=== PATIENT | male | born 1975 | race Caucasian/White ===

== ENCOUNTER 2017-03-26 17:20 | Emergency (ER) | payer OTHER ==
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
[2017-03-26 18:23] VITALS: BP 134/93; PULSE 73; TEMP 98.1; BMI 32.5
== END 2017-03-26 18:45 | disposition home or self-care (01) ==
LOC: FER 17:20
DX: M79.1 Myalgia (principal); V43.52XA Car driver injured in collision with other type car in traffic accident, initial encounter; Y93.89 Activity, other specified; Y92.410 Unspecified street and highway as the place of occurrence of the external cause
CPT/HCPCS: 99282-25